=== PATIENT | female | born 1975 | race Caucasian/White ===

== ENCOUNTER 2017-02-08 09:04 | Emergency (ER) | payer MEDICARE, MEDICAID ==
[~2017-02-08] VITALS: Ht 162.6 cm; Wt 65.7 kg
[~2017-02-08 09:04] MED LIST: AMLO5TAB2 PO; AMLO5TAB4 PO; APIX2.5T PO; ATOR20TA PO; ATOR40TA PO; B12; BUDE10.2 INH; CALC-478 PO; CALC0.25 PO; CEFD300C37 PO; CIPR500T87 PO; CLON0.1T PO; CYAN10005 PO; DABI150C PO; DIAZ5TAB4 PO; DIPH25CA61 PO; DOCU100C8 PO; DOXY100T PO; ERGO500017 PO; FLUT16SP NAS; FOLI-17 PO; FOLI0.8T2 PO; LYSI1000 PO; LYSI500T3 PO; MAGN100T6 PO; MECL25TA4 PO; METO-99 PO; METO100T3 PO; METR500T PO; MYCO500T PO; MYCO500T3 PO; OMEP-110 PO; ONDA-39 PO; OXYC-302 PO; PANT40TA5 PO; PRED10TA14 PO; PRED20TA PO; PRED5TAB PO; PREG150C PO; SENN1TAB7 PO; SYMBICORT; TOPI25CA5 PO; TRAM50TA2 PO; TRAZ50TA18 PO; VIT1TABL32 PO; WARF4TAB7 PO; ZONI50CA2 PO; [UNRECOGNIZED DRUG - OTHER]
[2017-02-08] MEDS ORDERED: ONDANSETRON 2MG/ML, 2ML ONE (09:49)
[2017-02-08] MEDS ORDERED: ONDANSETRON 2MG/ML, 2ML IVPush ONE (10:00)
[2017-02-08] MEDS ORDERED: SODIUM CHLORIDE FLUSH 10ML SYR IVF ONE (10:00)
[2017-02-08 10:13] LABS: ASPARTATE AMINO TRANSFERASE 12 U/L (15-37); BLOOD UREA NITROGEN 53 mg/dL (7-18)
[2017-02-08 10:18] LABS: IS PT STATUS REG ER OR PRE ER? YES
[2017-02-08] MEDS ORDERED: MORPHINE SULFATE 4 MG/ML, 1ML ONE ×2 (10:18→11:12)
[2017-02-08] MEDS: MORPHINE SULFATE 4 MG/ML, 1ML IVPush PRN ×2 (10:21→11:14)
[2017-02-08 13:55] VITALS: BP 140/106
== END 2017-02-08 14:45 | disposition home or self-care (01) ==
LOC: ED 10:41
DX: R07.2 Precordial pain (principal); R07.89 Other chest pain; R19.7 Diarrhea, unspecified; R11.0 Nausea; I10 Essential (primary) hypertension; J45.909 Unspecified asthma, uncomplicated; Z88.8 Allergy status to other drugs, medicaments and biological substances
CPT/HCPCS: 36415; 71010; 78582; 80053; 83880; 84484; 85025; 85379; 85610; 93005; 96374; 96375; 96376; 99285; A9540; A9558; C9898; J2405

== ENCOUNTER → 2018-05-10 | Outpatient (CLI) | payer MEDICARE, MEDICAID ==
[~2018-05-10] MED LIST changes: +APIX5TAB PO; -CALC-478 PO; +CALC1TAB58 PO; +DOCU100C33 PO; -DOCU100C8 PO; +FLUC100T4 PO; -LYSI1000 PO; +LYSI100010 PO; -METO100T3 PO; +METO100T7 PO; -ONDA-39 PO; +ONDA4TAB12 PO; +PREG100C PO; +PREG50CA PO; +REGADENOSON 0.4 MG/5 ML SYRINGE ONE; +SENN-87 PO; +TOPI50TA8 PO; +TRAZ-136 PO; -TRAZ50TA18 PO; +WARF4TAB65 PO; -WARF4TAB7 PO
== END | disposition home or self-care (01) ==
LOC: CFH 10:38
PROVIDERS: ATTEND Internal Medicine Cardiovascular Disease
DX: R93.1 Abnormal findings on diagnostic imaging of heart and coronary circulation (principal); I34.0 Nonrheumatic mitral (valve) insufficiency; I10 Essential (primary) hypertension; E78.5 Hyperlipidemia, unspecified; I25.2 Old myocardial infarction
CPT/HCPCS: 78452; 93017; 93306; A9502; J2785

== ENCOUNTER 2018-05-27 16:07 | Inpatient (IN) | payer MEDICARE, MEDICAID ==
[~2018-05-27] VITALS: Ht 162.6 cm; Wt 61.7 kg
[~2018-05-27 16:07] MED LIST changes: -AMLO5TAB2 PO; +AMLO5TAB7 PO; -REGADENOSON 0.4 MG/5 ML SYRINGE ONE; -SENN1TAB7 PO; +SENN1TAB8 PO
[2018-05-27 17:05] LABS: BASOPHILS # (AUTO) 0.03 x10^3/uL (0-0.1); BASOPHILS % (AUTO) 0 % (0-1); EOSINOPHILS # (AUTO) 0.07 x10^3/uL (0-0.4); EOSINOPHILS % (AUTO) 1 % (1-7); LYMPHOCYTES # (AUTO) 1.26 x10^3/uL (1-3.4); LYMPHOCYTES % (AUTO) 13 % (22-44); MD NO; MEAN CORPUSCULAR HEMOGLOBIN 30.5 pg (27.0-34.8); MEAN CORPUSCULAR HGB CONC 33.4 g/dL (32.4-35.8); MEAN CORPUSCULAR VOLUME 91.5 fL (80-100); MONOCYTES # (AUTO) 0.61 x10^3/uL (0.2-0.8); MONOCYTES % (AUTO) 6 % (2-9); NEUTROPHILS # (AUTO) 7.88 x10^3/uL (1.8-6.8); NEUTROPHILS % (AUTO) 80 % (42-75); PLATELET COUNT 300 x10^3/uL (130-400); RED BLOOD COUNT 3.73 x10^6/uL (3.82-5.3); RED CELL DISTRIBUTION WIDTH 14.1 % (9.6-15.2)
[2018-05-27 17:12] LABS: INTERNATIONAL NORMALIZED RATIO 0.99 (0.93-1.1); PROTHROMBIN TIME 10.3 Seconds (9.6-11.5)
[2018-05-27 17:15] LABS: ALBUMIN 2.8 g/dL (3.4-5.0); ANION GAP 13 mmol/L (5-15); CALCIUM 7.7 mg/dL (8.5-10.1); CHLORIDE 111 mmol/L (98-107)
[2018-05-27 17:23] LABS: ALANINE AMINOTRANSFERASE 11 U/L (12-78); ALKALINE PHOSPHATASE 56 U/L (45-117); BILIRUBIN,TOTAL 0.3 mg/dL (0.2-1.0); CREATININE 5.49 mg/dL (0.55-1.02); TOTAL PROTEIN 7.1 g/dL (6.4-8.2); TROPONIN I < 0.015 ng/mL (0.000-0.045)
[2018-05-27] MEDS ORDERED: SODIUM CHLORIDE 0.9% 1,000 ML IV ONE ×2 (18:31→20:11)
[2018-05-27 18:54] LABS: CULTURE INDICATED? YES; MICROSCOPIC INDICATED
[2018-05-27] MEDS ORDERED: ONDANSETRON ODT 4 MG ONE (18:57)
[2018-05-27] MEDS ORDERED: MORPHINE SULFATE 4 MG/ML, 1ML ONE (18:57)
[2018-05-27] MEDS ORDERED: SODIUM CHLORIDE 0.9% 1,000ML IVBOLUS ONE (19:00)
[2018-05-27] MEDS ORDERED: ONDANSETRON ODT 4 MG PO ONE (19:00)
[2018-05-27] MEDS ORDERED: MORPHINE SULFATE 4 MG/ML, 1ML IVPush PRN (19:00)
[2018-05-27 19:21] LABS: CLOSTRIDIUM DIFFICILE ANTIGEN NEGATIVE; CLOSTRIDIUM DIFFICILE TOXIN NEGATIVE (Negative)
[2018-05-27] MEDS ORDERED: sodium bicarbonate (19:58)
[2018-05-27] MEDS ORDERED: CEFTRIAXONE 1,000 MG in SODIUM CHLORIDE 0.9% 50 ML IV ONE (20:00)
[2018-05-27] MEDS ORDERED: ERGOCALCIFEROL 50,000 UNIT CAPSULE PO SCH (20:30)
[2018-05-27] MEDS ORDERED: ONDANSETRON 2MG/ML, 2ML IVPush PRN (20:30)
[2018-05-27] MEDS ORDERED: ACETAMINOPHEN 325 MG TABLET PO PRN (20:30)
[2018-05-27] MEDS ORDERED: SODIUM CHLORIDE FLUSH 10ML SYR IVF PRN (20:30)
[2018-05-27] MEDS ORDERED: TEMPLATE NON-FORMULARY MED. (Lysine 500 MG) PO SCH (21:00)
[2018-05-27] MEDS ORDERED: DIPHENOXYLATE/ATROPINE TABLET PO PRN (21:00)
[2018-05-27] MEDS: SODIUM CHLORIDE 0.9% 1,000 ML IV SCH (21:14)
[2018-05-27 21:33] VITALS: BP 115/69
[2018-05-27] MEDS: PANTOPROZOLE 40MG TABLET PO SCH (22:22)
[2018-05-27] MEDS: CEFTRIAXONE 1,000 MG in SODIUM CHLORIDE 0.9% 50 ML IV SCH (22:22)
[2018-05-27] MEDS: CALCIUM/VITAMIN D3 250-125 TABLET PO SCH (22:22)
[2018-05-27] MEDS: APIXABAN 5 MG TABLET PO SCH (22:23)
[2018-05-27] MEDS: FOLIC ACID 1 MG TABLET PO SCH (22:23)
[2018-05-27] MEDS: OXYcodone/APAP 5/325MG TABLET PO PRN (22:23)
[2018-05-27] MEDS: TRAZODONE 50MG TABLET PO SCH (22:23)
[2018-05-27] MEDS: ATORVASTATIN 40 MG TABLET PO SCH (22:23)
[2018-05-27] MEDS ORDERED: MAGNESIUM SULFATE PMX 4GM/100M 100 ML IVPB ONE (23:30)
[2018-05-28] VITALS (8 sets, daily range): BP systolic 72–105; BP diastolic 40–65
[2018-05-28] MEDS ORDERED: SODIUM CHLORIDE 0.9%, 500ML IVBOLUS ONE ×2 (02:30→13:00)
[2018-05-28] MEDS: SODIUM CHLORIDE 0.9% 500 ML IV SCH ×5 (03:21→16:20)
[2018-05-28] MEDS ORDERED: SODIUM CHLORIDE 0.9% 1,000ML IVBOLUS ONE (05:00)
[2018-05-28 05:52] LABS: CHLORIDE 113 mmol/L (98-107)
[2018-05-28 06:00] LABS: BASOPHILS # (AUTO) 0.03 x10^3/uL (0-0.1); BASOPHILS % (AUTO) 0 % (0-1); EOSINOPHILS # (AUTO) 0.05 x10^3/uL (0-0.4); EOSINOPHILS % (AUTO) 1 % (1-7); LYMPHOCYTES # (AUTO) 1.06 x10^3/uL (1-3.4); LYMPHOCYTES % (AUTO) 9 % (22-44); MD NO; MEAN CORPUSCULAR HEMOGLOBIN 30.7 pg (27.0-34.8); MEAN CORPUSCULAR HGB CONC 33.5 g/dL (32.4-35.8); MEAN CORPUSCULAR VOLUME 91.7 fL (80-100); MEAN PLATELET VOLUME 8.3 fL (7.4-10.4); MONOCYTES # (AUTO) 0.59 x10^3/uL (0.2-0.8); MONOCYTES % (AUTO) 5 % (2-9); NEUTROPHILS # (AUTO) 10.02 x10^3/uL (1.8-6.8); NEUTROPHILS % (AUTO) 85 % (42-75); PLATELET COUNT 222 x10^3/uL (130-400); RED BLOOD COUNT 2.93 x10^6/uL (3.82-5.3); RED CELL DISTRIBUTION WIDTH 13.7 % (9.6-15.2)
[2018-05-28 06:11] LABS: ALANINE AMINOTRANSFERASE 9 U/L (12-78); ALBUMIN 2.1 g/dL (3.4-5.0); ALKALINE PHOSPHATASE 40 U/L (45-117); ANION GAP 13 mmol/L (5-15); BILIRUBIN,TOTAL 0.1 mg/dL (0.2-1.0); CREATININE 4.62 mg/dL (0.55-1.02); TOTAL PROTEIN 5.1 g/dL (6.4-8.2)
[2018-05-28 06:24] LABS: CALCIUM 6.9 mg/dL (8.5-10.1)
[2018-05-28] MEDS ORDERED: MAGNESIUM SULFATE PMX 2GM/50ML 50 ML IV ONE (07:30)
[2018-05-28] MEDS ORDERED: POTASSIUM CHLORIDE 20 MEQ PACKET PO SCH (07:30)
[2018-05-28] MEDS ORDERED: DIAZEPAM 5 MG TABLET PO PRN (09:00)
[2018-05-28] MEDS ORDERED: DIAZEPAM 5 MG TABLET PO SCH (09:00)
[2018-05-28] MEDS: ONDANSETRON ODT 4 MG PO PRN (09:15)
[2018-05-28] MEDS: PREGABALIN 25 MG CAPSULE PO SCH (09:17)
[2018-05-28] MEDS: CALCITRIOL 0.25 MCG CAPSULE PO SCH (09:17)
[2018-05-28] MEDS: APIXABAN 5 MG TABLET PO SCH ×2 (09:18→19:59)
[2018-05-28] MEDS: FLUTICASONE/VILANTEROL 100-25MCG/INH INH SCH (09:18)
[2018-05-28] MEDS: CYANOCOBALAMIN 1,000 MCG TABLET PO SCH (09:18)
[2018-05-28] MEDS: PANTOPROZOLE 40MG TABLET PO SCH ×2 (09:18→19:59)
[2018-05-28] MEDS: FOLIC ACID 1 MG TABLET PO SCH ×2 (09:18→19:59)
[2018-05-28] MEDS: CALCIUM/VITAMIN D3 250-125 TABLET PO SCH ×2 (09:18→19:58)
[2018-05-28] MEDS: SODIUM CHLORIDE 0.9% 1,000 ML IV SCH ×2 (14:47→22:59)
[2018-05-28] MEDS: AZITHROMYCIN 500 MG TABLET PO SCH (15:22)
[2018-05-28] MEDS: CEFTRIAXONE 1,000 MG in SODIUM CHLORIDE 0.9% 50 ML IV SCH (19:58)
[2018-05-28] MEDS: ATORVASTATIN 40 MG TABLET PO SCH (19:58)
[2018-05-28] MEDS: TRAZODONE 50MG TABLET PO SCH (19:59)
[2018-05-29 01:03] VITALS: BP 101/68
[2018-05-29] MEDS: SODIUM CHLORIDE 0.9% 1,000 ML IV SCH (05:27)
[2018-05-29 06:14] LABS: BASOPHILS # (AUTO) 0.01 x10^3/uL (0-0.1); BASOPHILS % (AUTO) 0 % (0-1); EOSINOPHILS # (AUTO) 0.06 x10^3/uL (0-0.4); EOSINOPHILS % (AUTO) 1 % (1-7); LYMPHOCYTES % (AUTO) 18 % (22-44); MD NO; MEAN CORPUSCULAR HEMOGLOBIN 30.3 pg (27.0-34.8); MEAN CORPUSCULAR HGB CONC 32.7 g/dL (32.4-35.8); MEAN CORPUSCULAR VOLUME 92.4 fL (80-100); MEAN PLATELET VOLUME 8.1 fL (7.4-10.4); MONOCYTES # (AUTO) 0.67 x10^3/uL (0.2-0.8); MONOCYTES % (AUTO) 11 % (2-9); NEUTROPHILS # (AUTO) 4.15 x10^3/uL (1.8-6.8); NEUTROPHILS % (AUTO) 69 % (42-75); PLATELET COUNT 243 x10^3/uL (130-400); RED BLOOD COUNT 2.79 x10^6/uL (3.82-5.3); RED CELL DISTRIBUTION WIDTH 14.3 % (9.6-15.2)
[2018-05-29 06:15] LABS: ANION GAP 14 mmol/L (5-15); CALCIUM 7.2 mg/dL (8.5-10.1); CHLORIDE 117 mmol/L (98-107); CREATININE 3.76 mg/dL (0.55-1.02)
[2018-05-29 06:50] VITALS: BP 109/74
[2018-05-29] MEDS: FOLIC ACID 1 MG TABLET PO SCH ×2 (07:25→20:00)
[2018-05-29] MEDS: CALCIUM/VITAMIN D3 250-125 TABLET PO SCH ×2 (07:25→20:00)
[2018-05-29] MEDS: CYANOCOBALAMIN 1,000 MCG TABLET PO SCH (07:26)
[2018-05-29] MEDS: AZITHROMYCIN 500 MG TABLET PO SCH (07:26)
[2018-05-29] MEDS: PANTOPROZOLE 40MG TABLET PO SCH ×2 (07:26→20:00)
[2018-05-29] MEDS: PREGABALIN 25 MG CAPSULE PO SCH (07:26)
[2018-05-29] MEDS: FLUTICASONE/VILANTEROL 100-25MCG/INH INH SCH (07:26)
[2018-05-29] MEDS: CALCITRIOL 0.25 MCG CAPSULE PO SCH (07:26)
[2018-05-29] MEDS: OXYcodone/APAP 5/325MG TABLET PO PRN ×2 (09:39→18:57)
[2018-05-29] MEDS: IRON SUCROSE COMPLEX 100MG/5ML IV SCH (11:24)
[2018-05-29] MEDS: APIXABAN 5 MG TABLET PO SCH ×2 (11:24→20:00)
[2018-05-29] MEDS: ONDANSETRON ODT 4 MG PO PRN (11:33)
[2018-05-29 12:16] VITALS: BP 137/95
[2018-05-29 19:20] VITALS: BP 145/99
[2018-05-29] MEDS: CEFTRIAXONE 1,000 MG in SODIUM CHLORIDE 0.9% 50 ML IV SCH (19:59)
[2018-05-29] MEDS: ATORVASTATIN 40 MG TABLET PO SCH (20:00)
[2018-05-29] MEDS: TRAZODONE 50MG TABLET PO SCH (20:00)
[2018-05-30] MEDS: SODIUM CHLORIDE 0.9% 1,000 ML IV SCH ×2 (00:31→11:00)
[2018-05-30 01:23] VITALS: BP 124/79
[2018-05-30 05:32] LABS: ANION GAP 12 mmol/L (5-15); CALCIUM 8.3 mg/dL (8.5-10.1); CHLORIDE 122 mmol/L (98-107)
[2018-05-30 05:34] LABS: CREATININE 3.05 mg/dL (0.55-1.02)
[2018-05-30 05:42] LABS: BASOPHILS # (AUTO) 0.01 x10^3/uL (0-0.1); BASOPHILS % (AUTO) 0 % (0-1); EOSINOPHILS # (AUTO) 0.11 x10^3/uL (0-0.4); EOSINOPHILS % (AUTO) 2 % (1-7); LYMPHOCYTES # (AUTO) 1.04 x10^3/uL (1-3.4); LYMPHOCYTES % (AUTO) 16 % (22-44); MD NO; MEAN CORPUSCULAR HEMOGLOBIN 30.1 pg (27.0-34.8); MEAN CORPUSCULAR HGB CONC 32.5 g/dL (32.4-35.8); MEAN CORPUSCULAR VOLUME 92.7 fL (80-100); MEAN PLATELET VOLUME 8.3 fL (7.4-10.4); MONOCYTES # (AUTO) 0.75 x10^3/uL (0.2-0.8); MONOCYTES % (AUTO) 12 % (2-9); NEUTROPHILS % (AUTO) 71 % (42-75); PLATELET COUNT 252 x10^3/uL (130-400); RED CELL DISTRIBUTION WIDTH 14.9 % (9.6-15.2)
[2018-05-30 08:00] VITALS: BP 129/92
[2018-05-30] MEDS: ONDANSETRON ODT 4 MG PO PRN (08:55)
[2018-05-30] MEDS: CALCITRIOL 0.25 MCG CAPSULE PO SCH (08:57)
[2018-05-30] MEDS: IRON SUCROSE COMPLEX 100MG/5ML IV SCH (08:57)
[2018-05-30] MEDS: FLUTICASONE/VILANTEROL 100-25MCG/INH INH SCH (08:57)
[2018-05-30] MEDS: PREGABALIN 25 MG CAPSULE PO SCH (08:57)
[2018-05-30] MEDS: APIXABAN 5 MG TABLET PO SCH (08:57)
[2018-05-30] MEDS: FOLIC ACID 1 MG TABLET PO SCH (08:58)
[2018-05-30] MEDS: AZITHROMYCIN 500 MG TABLET PO SCH (08:58)
[2018-05-30] MEDS: CALCIUM/VITAMIN D3 250-125 TABLET PO SCH (08:58)
[2018-05-30] MEDS: PANTOPROZOLE 40MG TABLET PO SCH (08:58)
[2018-05-30] MEDS: CYANOCOBALAMIN 1,000 MCG TABLET PO SCH (08:58)
[2018-05-30] MEDS ORDERED: CEFD300C37 PO (10:51)
[2018-05-30] MEDS ORDERED: SODI650T PO (10:51)
== END 2018-05-30 12:30 | disposition home or self-care (01) | DRG 391 ==
LOC: ED 18:58 → EDIP 20:11 → 3NE 21:00
PROVIDERS: ADMIT Hospitalist; ATTEND Hospitalist
DX: A08.4 Viral intestinal infection, unspecified (principal); N17.0 Acute kidney failure with tubular necrosis; E44.0 Moderate protein-calorie malnutrition; D68.61 Antiphospholipid syndrome; E87.2 Acidosis; N10 Acute pyelonephritis; N18.4 Chronic kidney disease, stage 4 (severe); D89.9 Disorder involving the immune mechanism, unspecified; Z96.641 Presence of right artificial hip joint; I25.2 Old myocardial infarction; J45.909 Unspecified asthma, uncomplicated; F12.90 Cannabis use, unspecified, uncomplicated; E86.0 Dehydration; D25.9 Leiomyoma of uterus, unspecified; N92.4 Excessive bleeding in the premenopausal period; I25.10 Atherosclerotic heart disease of native coronary artery without angina pectoris; E78.5 Hyperlipidemia, unspecified; I12.9 Hypertensive chronic kidney disease with stage 1 through stage 4 chronic kidney disease, or unspecified chronic kidney disease; E53.8 Deficiency of other specified B group vitamins; E87.6 Hypokalemia; D64.9 Anemia, unspecified; E04.1 Nontoxic single thyroid nodule; E83.42 Hypomagnesemia; B96.20 Unspecified Escherichia coli [E. coli] as the cause of diseases classified elsewhere; M32.9 Systemic lupus erythematosus, unspecified; Z87.11 Personal history of peptic ulcer disease; Z86.73 Personal history of transient ischemic attack (TIA), and cerebral infarction without residual deficits; Z88.5 Allergy status to narcotic agent; Z88.8 Allergy status to other drugs, medicaments and biological substances; Z72.89 Other problems related to lifestyle; Z83.3 Family history of diabetes mellitus; Z82.49 Family history of ischemic heart disease and other diseases of the circulatory system; Z79.01 Long term (current) use of anticoagulants; Z68.23 Body mass index [BMI] 23.0-23.9, adult
CPT/HCPCS: 36415; 71045; 76770; 80048; 80053; 81001; 82436; 82570; 82728; 83540; 83550; 83605; 83631; 83735; 84133; 84300; 84466; 84484; 84703; 85025; 85610; 87040; 87046; 87077; 87086; 87186; 87324; 87427; 89055; 93005; G0378; J0696; J1756; Q0162; J3475; J7030; J7040; J7512; J7517

== ENCOUNTER → 2018-09-29 | Outpatient (CLI) | payer MEDICARE, MEDICAID ==
[~2018-09-29] MED LIST changes: +ACET-76 PO; +ALBU8.5H8 INH; +AMLO-150 PO; -AMLO5TAB7 PO; -CLON0.1T PO; +CLON0.1T22 PO; +LISI-167 PO; +OMEP40CA6 PO; -SENN-87 PO; +SENN-88 PO; +SODI650T PO; -TRAZ-136 PO; +TRAZ50TA66 PO; +sodium bicarbonate
[2018-09-29 11:18] LABS: BASOPHILS # (AUTO) 0.03 x10^3/uL (0-0.1); BASOPHILS % (AUTO) 0 % (0-1); EOSINOPHILS # (AUTO) 0.23 x10^3/uL (0-0.4); EOSINOPHILS % (AUTO) 2 % (1-7); LYMPHOCYTES # (AUTO) 1.67 x10^3/uL (1-3.4); LYMPHOCYTES % (AUTO) 12 % (22-44); MD NO; MEAN CORPUSCULAR HEMOGLOBIN 29.8 pg (27.0-34.8); MEAN CORPUSCULAR VOLUME 93.2 fL (80-100); MEAN PLATELET VOLUME 8.8 fL (7.4-10.4); MONOCYTES # (AUTO) 0.55 x10^3/uL (0.2-0.8); MONOCYTES % (AUTO) 4 % (2-9); NEUTROPHILS % (AUTO) 83 % (42-75); PLATELET COUNT 238 x10^3/uL (130-400); RED BLOOD COUNT 3.88 x10^6/uL (3.82-5.3); RED CELL DISTRIBUTION WIDTH 15.5 % (9.6-15.2)
[2018-09-29 11:30] LABS: ALANINE AMINOTRANSFERASE 22 U/L (12-78); ALBUMIN 3.3 g/dL (3.4-5.0); ANION GAP 7 mmol/L (5-15); CALCIUM 7.8 mg/dL (8.5-10.1); CHLORIDE 112 mmol/L (98-107); CREATININE 2.12 mg/dL (0.55-1.02)
[2018-09-29 11:33] LABS: ALKALINE PHOSPHATASE 63 U/L (45-117); BILIRUBIN,TOTAL 0.2 mg/dL (0.2-1.0); TOTAL PROTEIN 7.5 g/dL (6.4-8.2)
== END | disposition home or self-care (01) ==
LOC: STAR 10:15
PROVIDERS: ATTEND Obstetrics & Gynecology Female Pelvic Medicine and Reconstructive Surgery
DX: Z01.818 Encounter for other preprocedural examination (principal); N39.3 Stress incontinence (female) (male); R10.2 Pelvic and perineal pain; N94.6 Dysmenorrhea, unspecified
CPT/HCPCS: 36415; 80053; 85025; 93005

== ENCOUNTER 2018-10-04 07:20 | Day surgery (SDC) | payer MEDICARE, MEDICAID ==
[~2018-10-04] VITALS: Ht 162.6 cm; Wt 55.3 kg
[~2018-10-04 07:20] MED LIST changes: +BUPIVACAINE/PF 0.25% ONE; +EPINEPHRINE 1 MG/ML, 1ML ONE; +NEOMY/POLYMYXIN B GU IRR. 1 ML ONE
[2018-10-04 07:52] VITALS: BP 117/89
[2018-10-04] MEDS ORDERED: SODIUM CHLORIDE 0.9% 1,000 ML IV SCH (07:53)
[2018-10-04] MEDS ORDERED: LIDOCAINE-MPF 1%, 2ML INFIL ONE (08:00)
[2018-10-04] MEDS ORDERED: ENOX40SY4 SQ (08:26)
[2018-10-04] MEDS ORDERED: OXYcodone 5 MG/5 ML ORAL.SOL UDC PO PRN (10:00)
[2018-10-04] MEDS ORDERED: LABETALOL 5MG/ML, 20ML IV PRN (10:00)
[2018-10-04] MEDS ORDERED: MEPERIDINE/PF 25MG/0.5ML IVPush PRN (10:00)
[2018-10-04] MEDS ORDERED: MIDAZOLAM 1 MG/ML, 2ML IV PRN (10:00)
[2018-10-04] MEDS ORDERED: ONDANSETRON 2MG/ML, 2ML IVPush PRN (10:00)
[2018-10-04] MEDS ORDERED: HYDROmorphone 1 MG/ML, 1ML IV PRN (10:00)
[2018-10-04] MEDS ORDERED: LORazepam 2 MG/ML, 1ML ONE (10:17)
[2018-10-04] MEDS ORDERED: MIDAZOLAM 1 MG/ML, 2ML ONE (10:22)
[2018-10-04] MEDS ORDERED: FENTANYL PF 100 MCG/2ML ONE ×2 (10:22→12:12)
[2018-10-04] MEDS ORDERED: ONDANSETRON 2MG/ML, 2ML ONE (10:29)
[2018-10-04] MEDS ORDERED: DEXAMETHASONE 4 MG/ML, 1ML ONE (10:29)
[2018-10-04] MEDS ORDERED: SUCCINYLCHOLINE 20 MG/ML, 10ML ONE (10:29)
[2018-10-04] MEDS ORDERED: CEFAZOLIN 1,000 MG ONE (10:29)
[2018-10-04] MEDS ORDERED: PROPOFOL 10 MG/ML, 20ML ONE (10:29)
[2018-10-04] MEDS ORDERED: ACETAMINOPHEN 500 MG TABLET PO ONE (10:30)
[2018-10-04] MEDS ORDERED: GABAPENTIN 300 MG CAPSULE PO ONE (10:30)
[2018-10-04] MEDS ORDERED: LORazepam 2 MG/ML, 1ML IVPush ONE (10:30)
[2018-10-04] MEDS ORDERED: OXYcodone IR 5MG TABLET PO ONE (10:30)
[2018-10-04] MEDS ORDERED: METOCLOPRAMIDE 5 MG/ML, 2ML IVPush ONE (10:30)
[2018-10-04] MEDS ORDERED: OXYcodone 5 MG/5 ML ORAL.SOL UDC ONE (12:12)
[2018-10-04] MEDS: FENTANYL PF 100 MCG/2ML IV PRN ×3 (12:15→12:35)
[2018-10-04] MEDS ORDERED: KETOROLAC 30 MG/1 ML ONE (12:23)
[2018-10-04] MEDS ORDERED: KETOROLAC 30 MG/1 ML IVPush ONE (12:35)
[2018-10-04] MEDS ORDERED: KETOROLAC 30 MG/1 ML IVPush PRN ×2 (14:30)
[2018-10-04] MEDS ORDERED: IBUPROFEN 600 MG TABLET PO PRN ×2 (14:30)
[2018-10-04] MEDS ORDERED: HYDROmorphone 2 MG/ML, 1ML IVPush PRN (14:30)
[2018-10-04] MEDS ORDERED: OXYcodone/APAP 5/325MG TABLET PO PRN (14:30)
== END 2018-10-04 16:25 | disposition home or self-care (01) ==
LOC: OUT 07:20
PROVIDERS: ATTEND Obstetrics & Gynecology Female Pelvic Medicine and Reconstructive Surgery
DX: D25.0 Submucous leiomyoma of uterus (principal); N92.1 Excessive and frequent menstruation with irregular cycle; N39.3 Stress incontinence (female) (male); N80.3 Endometriosis of pelvic peritoneum; N94.6 Dysmenorrhea, unspecified; N94.10 Unspecified dyspareunia; N81.89 Other female genital prolapse; N83.12 Corpus luteum cyst of left ovary; J45.909 Unspecified asthma, uncomplicated; I12.9 Hypertensive chronic kidney disease with stage 1 through stage 4 chronic kidney disease, or unspecified chronic kidney disease; N18.9 Chronic kidney disease, unspecified; I25.2 Old myocardial infarction; N32.81 Overactive bladder; Z86.73 Personal history of transient ischemic attack (TIA), and cerebral infarction without residual deficits; Z88.5 Allergy status to narcotic agent; Z88.8 Allergy status to other drugs, medicaments and biological substances
CPT/HCPCS: 36415; 57265; 57282; 57288; 58552; 84703; 88307; C1771; J0171; J0330; J0690; J1100; J1885; J2060; J2250; J2405; J2704; J2765; J3010; J3490; J7030

== ENCOUNTER 2019-01-13 18:43 | Inpatient (IN) | payer MEDICARE, MEDICAID ==
[~2019-01-13] VITALS: Ht 162.6 cm; Wt 58.3 kg
[~2019-01-13 18:43] MED LIST changes: -BUPIVACAINE/PF 0.25% ONE; +ENOX40SY4 SQ; -EPINEPHRINE 1 MG/ML, 1ML ONE; -NEOMY/POLYMYXIN B GU IRR. 1 ML ONE; +SENN-177 PO; -SENN1TAB8 PO
[2019-01-13] MEDS ORDERED: SODIUM CHLORIDE 0.9% 1,000ML IVBOLUS ONE (19:00)
[2019-01-13] MEDS ORDERED: ONDANSETRON 2MG/ML, 2ML IVPush ONE (19:00)
[2019-01-13] MEDS ORDERED: FAMOTIDINE 20 MG/2 ML IVP ONE (19:00)
[2019-01-13] MEDS ORDERED: SODIUM CHLORIDE FLUSH 10ML SYR IVF ONE (19:00)
[2019-01-13] MEDS ORDERED: FAMOTIDINE 20 MG/2 ML ONE (19:29)
[2019-01-13] MEDS ORDERED: ONDANSETRON 2MG/ML, 2ML ONE (19:29)
[2019-01-13 20:03] LABS: BASOPHILS # (AUTO) 0.03 x10^3/uL (0-0.1); BASOPHILS % (AUTO) 0 % (0-1); EOSINOPHILS # (AUTO) 0.08 x10^3/uL (0-0.4); EOSINOPHILS % (AUTO) 1 % (1-7); LYMPHOCYTES # (AUTO) 2.14 x10^3/uL (1-3.4); LYMPHOCYTES % (AUTO) 27 % (22-44); MD NO; MEAN CORPUSCULAR HEMOGLOBIN 28.8 pg (27.0-34.8); MEAN CORPUSCULAR HGB CONC 32.3 g/dL (32.4-35.8); MEAN CORPUSCULAR VOLUME 89.3 fL (80-100); MEAN PLATELET VOLUME 9.9 fL (7.4-10.4); MONOCYTES # (AUTO) 0.68 x10^3/uL (0.2-0.8); MONOCYTES % (AUTO) 9 % (2-9); NEUTROPHILS # (AUTO) 4.96 x10^3/uL (1.8-6.8); NEUTROPHILS % (AUTO) 63 % (42-75); PLATELET COUNT 256 x10^3/uL (130-400); RED BLOOD COUNT 3.87 x10^6/uL (3.82-5.3); RED CELL DISTRIBUTION WIDTH 13.3 % (9.6-15.2)
[2019-01-13 20:06] LABS: ALANINE AMINOTRANSFERASE 18 U/L (12-78); ALBUMIN 3.5 g/dL (3.4-5.0); ANION GAP 13 mmol/L (5-15); CALCIUM 8.8 mg/dL (8.5-10.1); CHLORIDE 105 mmol/L (98-107); CREATININE 3.88 mg/dL (0.55-1.02)
[2019-01-13 20:09] LABS: ALKALINE PHOSPHATASE 79 U/L (45-117); TOTAL PROTEIN 7.5 g/dL (6.4-8.2)
[2019-01-13 20:14] LABS: BILIRUBIN,TOTAL < 0.1 mg/dL (0.2-1.0)
--- NOTE | 2019-01-13 20:22 | NUR ---
PT MED NOTED FOR NAUSEA, WITH EFFECT. PT TO CT WITH TECH TRANSPORT
[2019-01-13] MEDS ORDERED: SODIUM CHLORIDE 0.9% 1,000 ML IV ONE ×2 (20:55→22:12)
[2019-01-13 21:37] LABS: CLOSTRIDIUM DIFFICILE ANTIGEN NEGATIVE; CLOSTRIDIUM DIFFICILE TOXIN NEGATIVE (Negative)
[2019-01-13 21:38] LABS: MICROSCOPIC AUTO
[2019-01-13 21:49] LABS: CULTURE INDICATED? YES
[2019-01-13] MEDS ORDERED: CEFTRIAXONE PMX 1GM/50ML 50 ML IVPB ONE (22:00)
--- NOTE | 2019-01-13 22:01 | NUR ---
ER PA DISCUSSED PLAN FOR ADMIT.
[2019-01-13] MEDS ORDERED: MORPHINE SULFATE 4 MG/ML, 1ML ONE (22:05)
[2019-01-13] MEDS ORDERED: METO25TA35 PO (22:23)
[2019-01-13] MEDS ORDERED: SODIUM CHLORIDE FLUSH 10ML SYR IVF PRN (22:30)
[2019-01-13] MEDS ORDERED: MORPHINE SULFATE 4 MG/ML, 1ML IVPush PRN (22:30)
[2019-01-13] MEDS ORDERED: CEFTRIAXONE PMX 1GM/50ML 50 ML ONE (22:43)
[2019-01-13] MEDS ORDERED: TEMPLATE NON-FORMULARY MED. (Albuterol Sulfate (Proair Hfa) 2 PUFFS) INH PRN (23:30)
[2019-01-13] MEDS ORDERED: morphine SULFATE 10 MG/ML, 1ML IVPush PRN (23:30)
[2019-01-14] MEDS: CEFTRIAXONE PMX 1GM/50ML 50 ML IV SCH ×2 (00:01→23:23)
[2019-01-14] MEDS: LISINOPRIL 10 MG TABLET PO SCH ×2 (00:01→21:02)
[2019-01-14] MEDS: METOPROLOL TARTRATE 50 MG TABLET PO SCH ×3 (00:01→21:03)
[2019-01-14] MEDS: APIXABAN 5 MG TABLET PO SCH ×2 (00:01→08:00)
[2019-01-14] MEDS: SODIUM BICARBONATE 650 MG TABLET PO SCH ×4 (00:03→21:02)
[2019-01-14] MEDS: ATORVASTATIN 80 MG TABLET PO SCH ×2 (00:08→21:02)
[2019-01-14 02:00] VITALS: BP 92/57
[2019-01-14] MEDS: SODIUM CHLORIDE 0.9% 1,000 ML IV SCH ×3 (02:31→22:08)
[2019-01-14 05:14] LABS: ALBUMIN 2.5 g/dL (3.4-5.0); ANION GAP 9 mmol/L (5-15); BASOPHILS # (AUTO) 0.04 x10^3/uL (0-0.1); BASOPHILS % (AUTO) 1 % (0-1); CALCIUM 7.8 mg/dL (8.5-10.1); CHLORIDE 114 mmol/L (98-107); EOSINOPHILS # (AUTO) 0.08 x10^3/uL (0-0.4); EOSINOPHILS % (AUTO) 1 % (1-7); LYMPHOCYTES # (AUTO) 1.55 x10^3/uL (1-3.4); LYMPHOCYTES % (AUTO) 22 % (22-44); MD NO; MEAN CORPUSCULAR HEMOGLOBIN 29.2 pg (27.0-34.8); MEAN CORPUSCULAR HGB CONC 32.8 g/dL (32.4-35.8); MEAN CORPUSCULAR VOLUME 88.9 fL (80-100); MEAN PLATELET VOLUME 10.1 fL (7.4-10.4); MONOCYTES # (AUTO) 0.58 x10^3/uL (0.2-0.8); MONOCYTES % (AUTO) 8 % (2-9); NEUTROPHILS # (AUTO) 4.85 x10^3/uL (1.8-6.8); NEUTROPHILS % (AUTO) 68 % (42-75); PLATELET COUNT 192 x10^3/uL (130-400); RED BLOOD COUNT 2.92 x10^6/uL (3.82-5.3); RED CELL DISTRIBUTION WIDTH 13.3 % (9.6-15.2)
[2019-01-14 05:17] LABS: ALANINE AMINOTRANSFERASE 14 U/L (12-78); ALKALINE PHOSPHATASE 58 U/L (45-117); BILIRUBIN,TOTAL 0.4 mg/dL (0.2-1.0); CREATININE 3.01 mg/dL (0.55-1.02); TOTAL PROTEIN 5.6 g/dL (6.4-8.2)
[2019-01-14 07:56] VITALS: BP 101/73
[2019-01-14] MEDS: AMLODIPINE 5 MG TABLET PO SCH (08:00)
[2019-01-14] MEDS: PREGABALIN 25 MG CAPSULE PO SCH (08:00)
[2019-01-14] MEDS: OMEPRAZOLE 20 MG CAPSULE.DR PO SCH (08:00)
[2019-01-14] MEDS: ACETAMINOPHEN 500 MG TABLET PO PRN ×3 (08:08→21:03)
[2019-01-14] MEDS: ONDANSETRON 2MG/ML, 2ML IVPush PRN ×2 (08:08→15:11)
[2019-01-14] MEDS ORDERED: LISINOPRIL 10 MG TABLET PO SCH (09:00)
[2019-01-14 14:59] VITALS: BP 101/65
[2019-01-14 19:47] VITALS: BP 108/74
[2019-01-14] MEDS: APIXABAN 2.5 MG TABLET PO SCH (21:02)
[2019-01-14] MEDS: TRAZODONE 50MG TABLET PO PRN (21:15)
[2019-01-15 03:30] VITALS: BP 149/74
[2019-01-15 05:46] LABS: BASOPHILS # (AUTO) 0.03 x10^3/uL (0-0.1); BASOPHILS % (AUTO) 1 % (0-1); EOSINOPHILS # (AUTO) 0.08 x10^3/uL (0-0.4); EOSINOPHILS % (AUTO) 2 % (1-7); LYMPHOCYTES # (AUTO) 0.87 x10^3/uL (1-3.4); LYMPHOCYTES % (AUTO) 17 % (22-44); MD NO; MEAN CORPUSCULAR HEMOGLOBIN 29.3 pg (27.0-34.8); MEAN CORPUSCULAR HGB CONC 33.1 g/dL (32.4-35.8); MEAN CORPUSCULAR VOLUME 88.6 fL (80-100); MEAN PLATELET VOLUME 9.5 fL (7.4-10.4); MONOCYTES # (AUTO) 0.51 x10^3/uL (0.2-0.8); MONOCYTES % (AUTO) 10 % (2-9); NEUTROPHILS # (AUTO) 3.59 x10^3/uL (1.8-6.8); NEUTROPHILS % (AUTO) 71 % (42-75); PLATELET COUNT 182 x10^3/uL (130-400); RED CELL DISTRIBUTION WIDTH 13.6 % (9.6-15.2)
[2019-01-15 05:47] LABS: CHLORIDE 122 mmol/L (98-107)
[2019-01-15 06:06] LABS: ANION GAP 11 mmol/L (5-15); CALCIUM 7.4 mg/dL (8.5-10.1); CREATININE 2.45 mg/dL (0.55-1.02)
[2019-01-15] MEDS: SODIUM CHLORIDE 0.9% 1,000 ML IV SCH ×2 (07:17→15:17)
[2019-01-15 07:59] VITALS: BP 100/65
[2019-01-15] MEDS: SODIUM BICARBONATE 8.4% 100 MEQ in DEXTROSE 5% 1,000 ML IV SCH ×2 (09:08→20:45)
[2019-01-15] MEDS: APIXABAN 2.5 MG TABLET PO SCH ×2 (09:08→20:51)
[2019-01-15] MEDS: AMLODIPINE 5 MG TABLET PO SCH (09:09)
[2019-01-15] MEDS: METOPROLOL TARTRATE 50 MG TABLET PO SCH ×2 (09:09→20:50)
[2019-01-15] MEDS: PREGABALIN 25 MG CAPSULE PO SCH (09:09)
[2019-01-15] MEDS: OMEPRAZOLE 20 MG CAPSULE.DR PO SCH (09:09)
[2019-01-15] MEDS: ACETAMINOPHEN 500 MG TABLET PO PRN ×2 (10:03→20:50)
[2019-01-15] MEDS: ONDANSETRON 2MG/ML, 2ML IVPush PRN ×2 (10:04→17:28)
[2019-01-15 14:43] VITALS: BP 99/64
[2019-01-15 20:11] VITALS: BP 110/79
[2019-01-15] MEDS: TRAZODONE 50MG TABLET PO PRN (20:50)
[2019-01-15] MEDS: ATORVASTATIN 80 MG TABLET PO SCH (20:50)
[2019-01-15] MEDS: LISINOPRIL 10 MG TABLET PO SCH (20:52)
[2019-01-15] MEDS: CEFTRIAXONE PMX 1GM/50ML 50 ML IV SCH (23:41)
[2019-01-16 01:24] VITALS: BP 117/79
[2019-01-16] MEDS: ONDANSETRON 2MG/ML, 2ML IVPush PRN (04:51)
[2019-01-16 05:42] LABS: ANION GAP 7 mmol/L (5-15); CALCIUM 7.5 mg/dL (8.5-10.1); CHLORIDE 114 mmol/L (98-107)
[2019-01-16 05:43] LABS: CREATININE 2.21 mg/dL (0.55-1.02)
[2019-01-16 05:57] LABS: BASOPHILS # (AUTO) 0.02 x10^3/uL (0-0.1); BASOPHILS % (AUTO) 0 % (0-1); EOSINOPHILS % (AUTO) 2 % (1-7); LYMPHOCYTES # (AUTO) 1.36 x10^3/uL (1-3.4); LYMPHOCYTES % (AUTO) 22 % (22-44); MD NO; MEAN CORPUSCULAR HEMOGLOBIN 29.1 pg (27.0-34.8); MEAN CORPUSCULAR HGB CONC 33.1 g/dL (32.4-35.8); MEAN CORPUSCULAR VOLUME 87.9 fL (80-100); MONOCYTES # (AUTO) 0.53 x10^3/uL (0.2-0.8); MONOCYTES % (AUTO) 8 % (2-9); NEUTROPHILS # (AUTO) 4.29 x10^3/uL (1.8-6.8); NEUTROPHILS % (AUTO) 68 % (42-75); PLATELET COUNT 206 x10^3/uL (130-400); RED BLOOD COUNT 3.12 x10^6/uL (3.82-5.3); RED CELL DISTRIBUTION WIDTH 13.7 % (9.6-15.2)
[2019-01-16 07:17] VITALS: BP 117/82
[2019-01-16] MEDS: SODIUM CHLORIDE 0.9% 1,000 ML IV SCH ×2 (07:17→11:12)
[2019-01-16] MEDS ORDERED: POTASSIUM CHLORIDE 20 MEQ TAB.ER.PRT PO ONE (09:00)
[2019-01-16] MEDS ORDERED: CEFD300C37 PO (09:24)
[2019-01-16] MEDS: SODIUM BICARBONATE 8.4% 100 MEQ in DEXTROSE 5% 1,000 ML IV SCH (09:32)
[2019-01-16] MEDS: AMLODIPINE 5 MG TABLET PO SCH (09:53)
[2019-01-16] MEDS: APIXABAN 2.5 MG TABLET PO SCH (09:53)
[2019-01-16] MEDS: OMEPRAZOLE 20 MG CAPSULE.DR PO SCH (09:54)
[2019-01-16] MEDS: METOPROLOL TARTRATE 50 MG TABLET PO SCH (09:54)
[2019-01-16] MEDS: PREGABALIN 25 MG CAPSULE PO SCH (09:57)
== END 2019-01-16 14:23 | disposition home or self-care (01) | DRG 640 ==
LOC: ED 20:35 → EDIP 22:12 → 3NW 22:59
PROVIDERS: ADMIT Internal Medicine; ATTEND Internal Medicine
DX: E86.0 Dehydration (principal); N17.0 Acute kidney failure with tubular necrosis; D68.61 Antiphospholipid syndrome; N12 Tubulo-interstitial nephritis, not specified as acute or chronic; N18.4 Chronic kidney disease, stage 4 (severe); E87.2 Acidosis; E87.1 Hypo-osmolality and hyponatremia; D64.9 Anemia, unspecified; E53.8 Deficiency of other specified B group vitamins; I12.9 Hypertensive chronic kidney disease with stage 1 through stage 4 chronic kidney disease, or unspecified chronic kidney disease; I25.10 Atherosclerotic heart disease of native coronary artery without angina pectoris; I25.2 Old myocardial infarction; D89.9 Disorder involving the immune mechanism, unspecified; E78.5 Hyperlipidemia, unspecified; E04.2 Nontoxic multinodular goiter; G43.909 Migraine, unspecified, not intractable, without status migrainosus; M32.9 Systemic lupus erythematosus, unspecified; F12.90 Cannabis use, unspecified, uncomplicated; K52.9 Noninfective gastroenteritis and colitis, unspecified; M81.0 Age-related osteoporosis without current pathological fracture; N30.90 Cystitis, unspecified without hematuria; Z82.49 Family history of ischemic heart disease and other diseases of the circulatory system; Z83.3 Family history of diabetes mellitus; Z86.73 Personal history of transient ischemic attack (TIA), and cerebral infarction without residual deficits; Z90.711 Acquired absence of uterus with remaining cervical stump; Z98.42 Cataract extraction status, left eye
CPT/HCPCS: 36415; 74021; 74176; 80048; 80053; 81001; 82607; 82728; 83540; 83550; 83605; 83735; 84100; 84145; 85025; 87040; 87086; 87324; 89055; 96361; 96374; 96375; G0378; J0696; J2405; J7070; J2270; J3490; J7030; J7512; J7517

== ENCOUNTER 2019-11-12 13:00 | Emergency (ER) | payer MEDICAID, MEDICARE ==
[~2019-11-12] VITALS: Ht 162.6 cm; Wt 49.1 kg
[~2019-11-12 13:00] MED LIST changes: +CYAN-27 PO; -CYAN10005 PO; -FLUT16SP NAS; +FLUT16SP24 NAS; +MECL-101 PO; -MECL25TA4 PO; +METO25TA35 PO; +OMEP40CA42 PO; -OMEP40CA6 PO; +ONDA-89 PO; -ONDA4TAB12 PO; +ZONI50CA10 PO; -ZONI50CA2 PO
--- NOTE | 2019-11-12 13:31 | NUR ---
PT WITH C/O SOB/CP WITH ACTIVITY. STATES IT GETS BETTER WHEN SHE SITS DOWN. PT WITH HX OF ASTHMA. PT STATES SHE HAS HAD A NON PRODUCTIVE COUGH FOR THE PAST TWO DAYS. PT STATES SHE IN UNAWARE OF FEVERS, SHE HAS NOT TAKEN HER TEMPERATURE. PT TO ALL MONITORING EQUIPMENT. ERMD IN TO EVAL PT
[2019-11-12] MEDS ORDERED: ALBUTEROL/IPRATROPIUM 2.5MG/0.5MG, 3 ML ONE (13:48)
[2019-11-12] MEDS ORDERED: SODIUM CHLORIDE FLUSH 10ML SYR IVF ONE (14:00)
[2019-11-12] MEDS ORDERED: ALBUTEROL/IPRATROPIUM 2.5MG/0.5MG, 3 ML NPPB ONE (14:00)
[2019-11-12] MEDS ORDERED: SODIUM CHLORIDE 0.9% 1,000ML IVBOLUS ONE (14:00)
[2019-11-12 14:02] LABS: BASOPHILS # (AUTO) 0.06 x10^3/uL (0-0.1); BASOPHILS % (AUTO) 1 % (0-1); EOSINOPHILS # (AUTO) 0.06 x10^3/uL (0-0.4); EOSINOPHILS % (AUTO) 1 % (1-7); LYMPHOCYTES # (AUTO) 1.36 x10^3/uL (1-3.4); LYMPHOCYTES % (AUTO) 25 % (22-44); MD NO; MEAN CORPUSCULAR HEMOGLOBIN 29.7 pg (27.0-34.8); MEAN CORPUSCULAR HGB CONC 32.6 g/dL (32.4-35.8); MEAN CORPUSCULAR VOLUME 91.3 fL (80-100); MEAN PLATELET VOLUME 9.5 fL (7.4-10.4); MONOCYTES # (AUTO) 0.76 x10^3/uL (0.2-0.8); MONOCYTES % (AUTO) 14 % (2-9); NEUTROPHILS % (AUTO) 59 % (42-75); PLATELET COUNT 228 x10^3/uL (130-400); RED BLOOD COUNT 3.37 x10^6/uL (3.82-5.3); RED CELL DISTRIBUTION WIDTH 15.6 % (9.6-15.2)
[2019-11-12 14:13] LABS: ALANINE AMINOTRANSFERASE 31 U/L (12-78); ANION GAP 8 mmol/L (5-15); CALCIUM 7.8 mg/dL (8.5-10.1); CHLORIDE 109 mmol/L (98-107); CREATININE 2.68 mg/dL (0.55-1.02)
[2019-11-12 14:16] LABS: ALKALINE PHOSPHATASE 67 U/L (45-117); BILIRUBIN,TOTAL 0.2 mg/dL (0.2-1.0); TOTAL PROTEIN 7.2 g/dL (6.4-8.2)
[2019-11-12 14:27] LABS: RAPID INFLUENZA A POSITIVE (Negative); RAPID INFLUENZA B Negative (Negative)
--- NOTE | 2019-11-12 14:35 | NUR ---
PORT ACCESSED PER OK OF ERMD, PT MEDICATED PER NOV.
[2019-11-12 14:52] VITALS: BP 124/87
--- NOTE | 2019-11-12 16:15 | NUR ---
PT WISHING TO DISCUSS CONCERNS WITH ER EXPERIENCE, EDEL MAIER RN NOTIFIED, HE IS IN TO SPEAK WITH PT
== END 2019-11-12 16:38 | disposition home or self-care (01) ==
LOC: ED 16:00
DX: J10.1 Influenza due to other identified influenza virus with other respiratory manifestations (principal); R19.7 Diarrhea, unspecified; R11.10 Vomiting, unspecified; I10 Essential (primary) hypertension; G43.909 Migraine, unspecified, not intractable, without status migrainosus; Z86.73 Personal history of transient ischemic attack (TIA), and cerebral infarction without residual deficits; J45.909 Unspecified asthma, uncomplicated; K21.9 Gastro-esophageal reflux disease without esophagitis; Z96.641 Presence of right artificial hip joint
CPT/HCPCS: 36415; 71045; 80053; 83605; 84145; 85025; 87040; 87400; 93005; 94640; 96360; 99285; J7030; J7620

== ENCOUNTER → 2020-01-19 | Outpatient (CLI) | payer MEDICARE, MEDICAID | END | disposition home or self-care (01) | LOC: CFH 12:57 | PROVIDERS: ATTEND Internal Medicine Cardiovascular Disease | DX: I08.8 Other rheumatic multiple valve diseases (principal) | CPT/HCPCS: 93306 ==

== ENCOUNTER 2020-02-29 10:28 | Emergency (ER) | payer MEDICARE, MEDICAID ==
[~2020-02-29] VITALS: Ht 162.6 cm; Wt 50.2 kg
[~2020-02-29 10:28] MED LIST changes: +ONDA4TAB13 SL; +SENN-190 PO; -SENN-88 PO
[2020-02-29 11:18] LABS: MEAN CORPUSCULAR HEMOGLOBIN 29.7 pg (27.0-34.8); MEAN CORPUSCULAR HGB CONC 32.2 g/dL (32.4-35.8); MEAN CORPUSCULAR VOLUME 92.1 fL (80-100); MEAN PLATELET VOLUME 8.7 fL (7.4-10.4); PLATELET COUNT 329 x10^3/uL (130-400); RED BLOOD COUNT 3.12 x10^6/uL (3.82-5.3); RED CELL DISTRIBUTION WIDTH 14.7 % (9.6-15.2)
--- NOTE | 2020-02-29 11:23 | NUR ---
pt instructed to provide clean catch ua, pt up to bathroom at this time, gait steady.
[2020-02-29 11:26] LABS: ALBUMIN 3.2 g/dL (3.4-5.0); ANION GAP 11 mmol/L (5-15); CHLORIDE 106 mmol/L (98-107)
[2020-02-29 11:30] LABS: ALANINE AMINOTRANSFERASE 20 U/L (12-78); ALKALINE PHOSPHATASE 64 U/L (45-117); BILIRUBIN,TOTAL 0.3 mg/dL (0.2-1.0); CREATININE 3.41 mg/dL (0.55-1.02); TOTAL PROTEIN 7.3 g/dL (6.4-8.2)
[2020-02-29 11:33] LABS: BASOPHILS # (AUTO) 0.09 x10^3/uL (0-0.1); BASOPHILS % (AUTO) 1 % (0-1); EOSINOPHILS # (AUTO) 0.07 x10^3/uL (0-0.4); EOSINOPHILS % (AUTO) 1 % (1-7); LYMPHOCYTES # (AUTO) 2.17 x10^3/uL (1-3.4); LYMPHOCYTES % (AUTO) 28 % (22-44); MD SCAN; MONOCYTES # (AUTO) 0.69 x10^3/uL (0.2-0.8); MONOCYTES % (AUTO) 9 % (2-9); NEUTROPHILS # (AUTO) 4.64 x10^3/uL (1.8-6.8); NEUTROPHILS % (AUTO) 61 % (42-75)
--- NOTE | 2020-02-29 12:00 | NUR ---
PT PRESENTS TO ED WITH C/O COUGH AND RUNNY NOSE X 3 WEEKS, BILATERAL FLANK PAIN X 3 DAYS, GENERALIZED ABD PAIN THAT IS CHRONIC BUT WORSE SINCE LAST NIGHT, THEN AWOKE THIS AM FEELING DISORIENTED AND DIZZY. PT A&OX4, NEURO INTACT. PT A&O, RESPS EVEN AND UNLABORED. NADN. CALL LIGHT IN REACH. AWAITING LABS AND DISPO.
[2020-02-29 12:20] LABS: HCG UR SG 1.009 (1.003-1.030)
[2020-02-29 12:26] LABS: MICROSCOPIC INDICATED
--- NOTE | 2020-02-29 12:30 | NUR ---
JOLENE SMITH AT BEDSIDE, STATES PLAN IV AND IVF. PT AGREEABLE.
[2020-02-29] MEDS ORDERED: SODIUM CHLORIDE 0.9% 1,000ML IVBOLUS ONE ×2 (13:00→14:00)
[2020-02-29] MEDS ORDERED: SODIUM CHLORIDE FLUSH 10ML SYR IVF ONE (13:00)
--- NOTE | 2020-02-29 13:06 | NUR ---
PT RESTING ON GURNEY, PIV PLACED, IVF INFUSING. PT TOLERATING WELL. ALL MONITORS IN PLACE, NSR ON DIVISION ROADMASTER WITH NO ECTOPY NOTED, RATE 60'S. PT A&O, RESPS EVEN AND UNLABORED, NIGHATN.
--- NOTE | 2020-02-29 14:25 | NUR ---
HILDA SMITH AT BEDSIDE TO UPDATE PT WITH POC. PER MD, NO EKG INDICATED FOR PT'S SYMPTOMOLOGY. PT A&O, RESPS EVEN AND UNLABORED, NADN. PT TO HAVE SECOND LITER NS AND BE DC'D.
[2020-02-29 15:07] VITALS: BP 128/90
--- NOTE | 2020-02-29 15:11 | NUR ---
second liter NS complete, ERP Yuri notified. Report given to RN Cheyanne who is to assume care. pt a&o, resps even and unlabored, nsr on inspector and mender with no ectopy noted. nadn. awaiting dc orders and paperwork from MD at this time.
--- NOTE | 2020-02-29 16:20 | NUR ---
PT ELOPED PRIOR TO RECEIVING DC INSTRUCTIONS.
== END 2020-02-29 16:31 | disposition home or self-care (01) ==
LOC: ED 12:35
DX: N18.9 Chronic kidney disease, unspecified (principal); R41.0 Disorientation, unspecified; R05 Cough; R10.9 Unspecified abdominal pain; R09.89 Other specified symptoms and signs involving the circulatory and respiratory systems
CPT/HCPCS: 36415; 71045; 80053; 81001; 81025; 83735; 85025; 96360; 96361; 99285; J7030

== ENCOUNTER 2020-04-14 13:59 | Emergency (ER) | payer MEDICARE, MEDICAID ==
[~2020-04-14] VITALS: Ht 162.6 cm; Wt 49.6 kg
[~2020-04-14 13:59] MED LIST changes: -PANT40TA5 PO; +PANT40TA6 PO
--- NOTE | 2020-04-14 14:49 | NUR ---
PACKAGER HAND: PT WALKED BACK FROM LOBBY TO ROOM AT THIS TIME.
[2020-04-14] MEDS ORDERED: SODIUM CHLORIDE 0.9% 1,000ML IVBOLUS ONE (15:00)
[2020-04-14] MEDS ORDERED: ONDANSETRON 2MG/ML, 2ML IVPush ONE (15:00)
[2020-04-14] MEDS ORDERED: ONDANSETRON 2MG/ML, 2ML ONE (15:02)
[2020-04-14 15:04] VITALS: BP 135/94
[2020-04-14 15:16] LABS: BASOPHILS # (AUTO) 0.01 x10^3/uL (0-0.1); BASOPHILS % (AUTO) 0 % (0-1); EOSINOPHILS # (AUTO) 0.02 x10^3/uL (0-0.4); EOSINOPHILS % (AUTO) 0 % (1-7); LYMPHOCYTES # (AUTO) 0.97 x10^3/uL (1-3.4); LYMPHOCYTES % (AUTO) 10 % (22-44); MD NO; MEAN CORPUSCULAR HEMOGLOBIN 29.9 pg (27.0-34.8); MEAN CORPUSCULAR HGB CONC 32.2 g/dL (32.4-35.8); MEAN PLATELET VOLUME 9.1 fL (7.4-10.4); MONOCYTES # (AUTO) 0.22 x10^3/uL (0.2-0.8); MONOCYTES % (AUTO) 2 % (2-9); NEUTROPHILS # (AUTO) 8.47 x10^3/uL (1.8-6.8); NEUTROPHILS % (AUTO) 87 % (42-75); PLATELET COUNT 260 x10^3/uL (130-400); RED BLOOD COUNT 3.49 x10^6/uL (3.82-5.3); RED CELL DISTRIBUTION WIDTH 14.5 % (9.6-15.2)
[2020-04-14 15:21] LABS: ANION GAP 6 mmol/L (5-15); CALCIUM 7.9 mg/dL (8.5-10.1); CHLORIDE 110 mmol/L (98-107); CREATININE 2.76 mg/dL (0.55-1.02)
[2020-04-14 15:22] LABS: ALANINE AMINOTRANSFERASE 20 U/L (12-78); ALBUMIN 3.2 g/dL (3.4-5.0)
[2020-04-14 15:26] LABS: ALKALINE PHOSPHATASE 56 U/L (45-117); BILIRUBIN,TOTAL 0.2 mg/dL (0.2-1.0); TOTAL PROTEIN 7.3 g/dL (6.4-8.2); TROPONIN I < 0.015 ng/mL (0.000-0.045)
--- NOTE | 2020-04-14 15:40 | NUR ---
results back. fluid mostly infused. pt sts took some sips of water, no vomiting so far. as
== END 2020-04-14 16:41 | disposition home or self-care (01) ==
LOC: ED 15:29
DX: R11.2 Nausea with vomiting, unspecified (principal); E86.0 Dehydration; R07.2 Precordial pain; I12.9 Hypertensive chronic kidney disease with stage 1 through stage 4 chronic kidney disease, or unspecified chronic kidney disease; N18.3 Chronic kidney disease, stage 3 (moderate); D59.1 Other autoimmune hemolytic anemias; Z86.73 Personal history of transient ischemic attack (TIA), and cerebral infarction without residual deficits; J45.909 Unspecified asthma, uncomplicated; Z87.891 Personal history of nicotine dependence; Z96.641 Presence of right artificial hip joint
CPT/HCPCS: 36415; 71045; 80053; 84484; 85025; 93005; 96361; 96374; 99285; J2405; J7030